=== PATIENT | female | born 1975 | race Caucasian/White ===

== ENCOUNTER 2016-11-08 09:15 | Emergency (ER) | payer OTHER ==
--- NOTE | 2016-11-08 10:22 | ED ORDER SUMMARY ---
..... Patient: NATACHA BEST OrderSheet [facility] VisitID: [id number] [address] [place] [address] 41y, F Registration Date/Time: 11/08/2016 ORDER SHEET Weight: 58.9 kg (stated) Allergies: Penicillins GENERAL ORDERS: MEDICATION ORDERS: Hydrocodone-APAP PO 2 tabs (NOW, HIGH ALERT MEDICATION) (10:18 11/08/2016 Michael WILKINSON) (10:34 Johnathan Adnersen) IV FLUIDS: ORDER SHEET NOTES: [Electronically signed by Jose M Clarke R.N. (10:36 11/08/2016)] [Electronically signed by Ovidio Corbin MD (10:37 11/08/2016)] [Electronically locked/signed by Jose M Clarke R.N. (10:36 11/08/2016)]
--- NOTE | 2016-11-08 10:22 | ED CLINICAL REPORT ---
Clinical Report - Physicians/Mid Levels [facility] [address] [place] [address] 11/08/2016 9:15 Patient: NATACHA BEST Time Seen: 09:22. Arrived- By private vehicle. Historian- patient. HISTORY OF PRESENT ILLNESS Chief Complaint: BACK PAIN. Onset was today The pain began shortly after doing some heavy bending and lifting. It did not occur during the bending and lifting. It was much worse with breathing and movement. It was abrupt in onset. Modifying factors. (Worse with bending and breathing). It is described as being moderate in degree (To severe) and in the area of the upper lumbar spine and lower lumbar spine and radiating (to R and L epigastrium abdomen). The quality is noted to be sharp and "pain". Quality not similar to prior episodes. No bladder dysfunction, bowel dysfunction, sensory loss or motor loss. Patient denies an injury. No other injury. Similar symptoms previously: None. Recent medical care: The patient was seen recently in the office. REVIEW OF SYSTEMS No fever, chills, sore throat, cough or chest pain. No nausea, vomiting, difficulty with urination or urinary frequency. She has had difficulty breathing (because of pain, now resolved). She has had abdominal pain (unchanged for the last 10 days). PAST HISTORY PCP: Sundar Ops: Hosp: Illness: Remote hx of panic attack, Hypothyroidism. SOCIAL HISTORY Current every day smoker. ADDITIONAL NOTES The nursing notes have been reviewed. PHYSICAL EXAM Vital Signs: 11/08/2016 09:28 BP: 118/84. HR: 72. RR: 16. O2 saturation: 100%. Temp: 97.7 F. Pain level now: 7/10. Neck: Neck nontender. CVS: Normal heart rate and rhythm. Heart sounds normal. Respiratory: No respiratory distress. Breath sounds normal. Chest nontender. Abdomen: Mild tenderness in the upper abdomen. Femoral pulses equal. No rebound tenderness or guarding. Back: Mild soft tissue tenderness in the right upper and left upper thoracic area. No soft tissue tenderness in the central thoracic area. Skin: Skin warm. Normal skin color. No rash. Neuro: No motor deficit. No sensory deficit. Straight leg raising: negative on the right and negative on the left. Reflex exam: right biceps 1+, left biceps 1+, right patellar 2+, left patellar 2+, right Achilles 1+ and left Achilles 1+. PROGRESS AND PROCEDURES Course of Care: 09:59 11/08/16. Well's score = 0 plus gestalt, clinical risk of PE is extremely low. 10:19 11/08/16. US at bedside by me - shows normal abdominal aorta. This episode initially was almost certainly musculoskeletal back pain. Since the patient has had some pain with radiation to the epigastrium, I considered abdominal aortic aneurysm which I ruled out with a bedside ultrasound performed by me. There is no evidence of a neurosurgical emergency either. The patient was warned not to drive drink alcohol or work dangerous tools while taking these medications. She was also warned not to take the Xanax and the Robaxin simultaneously. Wells clinical prediction rule (PE): No clinical symptoms of DVT, other diagnosis less likely than PE, immobilization or surgery within 4wks, previous DVT or PE or hemoptysis. No malignancy. Heart rate less than 100 per minute. Disposition: Discharged. CLINICAL IMPRESSION Muscle strain of the upper back. INSTRUCTIONS ([facility] ULTRASOUND SHOWED NORMAL AORTA). Warnings: CONTROLLED SUBSTANCE WARNINGS. Prescription Medications: Hydrocodone/APAP 5mg / 325mg: take 1-2 orally every 4 hours as needed for pain. Dispense twenty (20). No refill. Robaxin 750 mg: Take 2 orally every 6 hours as needed for muscle spasm. Dispense thirty (30). No refills. Substitution is permissible. Follow-up: Follow up with doctor MONTEIRO in five days. Understanding of the discharge instructions verbalized by patient. (Electronically signed by Ovidio Corbin MD 11/08/2016 10:37)
--- NOTE | 2016-11-08 10:22 | ED CLINICAL REPORT ---
Clinical Report - Physicians/Mid Levels [facility] [address] [place] [address] 11/08/2016 9:15 Patient: NATACHA BEST Time Seen: 09:22. Arrived- By private vehicle. Historian- patient. HISTORY OF PRESENT ILLNESS Chief Complaint: BACK PAIN. Onset was today The pain began shortly after doing some heavy bending and lifting. It did not occur during the bending and lifting. It was much worse with breathing and movement. It was abrupt in onset. Modifying factors. (Worse with bending and breathing). It is described as being moderate in degree (To severe) and in the area of the upper lumbar spine and lower lumbar spine and radiating (to R and L epigastrium abdomen). The quality is noted to be sharp and "pain". Quality not similar to prior episodes. No bladder dysfunction, bowel dysfunction, sensory loss or motor loss. Patient denies an injury. No other injury. Similar symptoms previously: None. Recent medical care: The patient was seen recently in the office. REVIEW OF SYSTEMS No fever, chills, sore throat, cough or chest pain. No nausea, vomiting, difficulty with urination or urinary frequency. She has had difficulty breathing (because of pain, now resolved). She has had abdominal pain (unchanged for the last 10 days). PAST HISTORY PCP: Sundar Ops: Hosp: Illness: Remote hx of panic attack, Hypothyroidism. SOCIAL HISTORY Current every day smoker. ADDITIONAL NOTES The nursing notes have been reviewed. PHYSICAL EXAM Vital Signs: 11/08/2016 09:28 BP: 118/84. HR: 72. RR: 16. O2 saturation: 100%. Temp: 97.7 F. Pain level now: 7/10. Neck: Neck nontender. CVS: Normal heart rate and rhythm. Heart sounds normal. Respiratory: No respiratory distress. Breath sounds normal. Chest nontender. Abdomen: Mild tenderness in the upper abdomen. Femoral pulses equal. No rebound tenderness or guarding. Back: Mild soft tissue tenderness in the right upper and left upper thoracic area. No soft tissue tenderness in the central thoracic area. Skin: Skin warm. Normal skin color. No rash. Neuro: No motor deficit. No sensory deficit. Straight leg raising: negative on the right and negative on the left. Reflex exam: right biceps 1+, left biceps 1+, right patellar 2+, left patellar 2+, right Achilles 1+ and left Achilles 1+. PROGRESS AND PROCEDURES Course of Care: 09:59 11/08/16. Well's score = 0 plus gestalt, clinical risk of PE is extremely low. 10:19 11/08/16. US at bedside by me - shows normal abdominal aorta. This episode initially was almost certainly musculoskeletal back pain. Since the patient has had some pain with radiation to the epigastrium, I considered abdominal aortic aneurysm which I ruled out with a bedside ultrasound performed by me. There is no evidence of a neurosurgical emergency either. The patient was warned not to drive drink alcohol or work dangerous tools while taking these medications. She was also warned not to take the Xanax and the Robaxin simultaneously. Wells clinical prediction rule (PE): No clinical symptoms of DVT, other diagnosis less likely than PE, immobilization or surgery within 4wks, previous DVT or PE or hemoptysis. No malignancy. Heart rate less than 100 per minute. Disposition: Discharged. CLINICAL IMPRESSION Muscle strain of the upper back. INSTRUCTIONS ([facility] ULTRASOUND SHOWED NORMAL AORTA). Warnings: CONTROLLED SUBSTANCE WARNINGS. Prescription Medications: Hydrocodone/APAP 5mg / 325mg: take 1-2 orally every 4 hours as needed for pain. Dispense twenty (20). No refill. Robaxin 750 mg: Take 2 orally every 6 hours as needed for muscle spasm. Dispense thirty (30). No refills. Substitution is permissible. Follow-up: Follow up with doctor MONTEIRO in five days. Understanding of the discharge instructions verbalized by patient. (Electronically signed by Ovidio Corbin MD 11/08/2016 10:37)
--- NOTE | 2016-11-08 10:22 | ED NURSING NOTES ---
Clinical Report - Nurses [facility] [address] [place] [address] 11/08/2016 9:15 Patient: NATACHA BEST TRIAGE Triage time 09:28. Acuity: LEVEL 4. Chief Complaint: (Sudden onset lower thoracic back pain that radiates bilaterally. Pain increases with deep breathing. Denies injury.). 09:45 11/08/16. SEPSIS SCREEN: Sepsis Screen. Negative (no infection suspected/documented). STALIN COMA SCORE: Stalin Coma Scale: 15- eyes open spontaneously (4); best verbal response- oriented x 4 (5); best motor response- obeys commands (6). --09:45 Jose M Clarke R.N. 09:28 11/08/16. BP: 118/84. HR: 72. RR: 16. O2 saturation: 100% on room air. Temp: 97.7 F (oral). Pain level now: 02/16. --09:45 Jose M Clarke R.N. Weight: 58.9 kg stated. Height/Length: 69 inches Per Patient. BMI: 19.2. --09:40 Jose M Clarke R.N. Medications Levothyroxine Sodium Oral. --09:30 Jose M lCarke R.N. Xanax Oral 0.25 mg, as needed. --09:31 Jose M Clarke R.N. Zantac Oral (Tablet 150 mg) 1 tablet, 2x a day. --09:42 Jose M Clarke R.N. The following entry was struck and corrected by Jose M Clarke R.N., 09:47 (11/08/16) Reason for correction - other(correction). <<STRICKEN ENTRY-- Zantac Oral. --09:42 Jose M Clarke R.N. --END STRIKE>> The following entry was struck and corrected by Jose M Clarke R.N., 09:47 (11/08/16) Reason for correction - other(correction). <<STRICKEN ENTRY-- Xanax Oral. --09:31 Jose M Clarke R.N. --END STRIKE>>. Allergies Penicillins. --09:30 Jose M Clarke R.N. History Arrived by private vehicle. Historian: patient. Accompanied by family. This started just prior to arrival. 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 PAST MEDICAL HX: Last normal menstrual period- weeks ago. SOCIAL HX: Light tobacco smoker (cigarette)- less than 1/2 a pack per day. Occasional alcohol use. No drug use. ABUSE ASSESSMENT: No report of abuse. --09:45 Jose M Clarke R.N. PROBLEMS: Anxiety Reaction. Thyroid Disease. Sinusitis. Bronchitis. --09:31 Jose M Clarke R.N. ADDITIONAL SURGERIES: no known surgeries. Interventions ID band on patient. To treatment room. --09:45 Jose M Clarke R.N. PHYSICAL ASSESSMENT 09:49 11/08/16. Ambulatory to room. GENERAL / NEURO / PSYCH: Alert. Oriented X 4. Appears in pain and anxious. HEENT: Pupils equal, round and reactive to light. No facial asymmetry noted. Mucous membranes are pink. RESPIRATORY: Mild respiratory distress. The patient can speak in full sentences. Chest nontender. Breath sounds within normal limits. ( posterior and lateral rib pain with deep breathing). CVS: Capillary refill less than 2 seconds. Pulses within normal limits. GI / : Abdomen soft and nontender and normal bowel sounds. SKIN: Skin intact. Skin is warm and dry. Normal skin turgor. --09:49 Jose M Clarke R.N. NURSING PROGRESS NOTES 09:49 11/08/16. Patient gowned. Reassurance given. Two patient identifiers checked. Call light placed in reach. Bed placed in lowest position. Brakes of bed on. Patient ready for evaluation- chart flagged. --09:49 Jose M Clarke R.N. 10:25 11/08/2016 Hydrocodone-APAP (Hydrocodone-Acetaminophen) PO 5/325 mg Tablets 2 tab given. Allergies verified, confirmed 5 rights and sedative warning given to the patient and patient's family. --10:34 Jose M Clarke R.N. 10:34 11/08/2016 Hydrocodone-APAP PO Response: no adverse reaction. --10:34 Jose M Clarke R.N. DISPOSITION / DISCHARGE 10:30. Departure time: 1030. Condition at departure: unchanged and stable. No learning barriers present. Discharge instructions provided and reviewed with the patient and spouse. Reviewed warnings. Reviewed medication(s). Patient verbalized understanding. Written instructions provided in Malawian. The patient was discharged by the physician. She was discharged home and accompanied by spouse. She left the Emergency Department ambulatory and via private vehicle. Spouse driving. --10:36 Jose M Clarke R.N. Locked/Released at 11/08/2016 10:36 by Jose M Clarke R.N.
--- NOTE | 2016-11-08 10:22 | ED NURSING NOTES ---
Clinical Report - Nurses [facility] [address] [place] [address] 11/08/2016 9:15 Patient: NATACHA BEST TRIAGE Triage time 09:28. Acuity: LEVEL 4. Chief Complaint: (Sudden onset lower thoracic back pain that radiates bilaterally. Pain increases with deep breathing. Denies injury.). 09:45 11/08/16. SEPSIS SCREEN: Sepsis Screen. Negative (no infection suspected/documented). STALIN COMA SCORE: Stalin Coma Scale: 15- eyes open spontaneously (4); best verbal response- oriented x 4 (5); best motor response- obeys commands (6). --09:45 Jose M Clarke R.N. 09:28 11/08/16. BP: 118/84. HR: 72. RR: 16. O2 saturation: 100% on room air. Temp: 97.7 F (oral). Pain level now: 02/16. --09:45 Jose M Clarke R.N. Weight: 58.9 kg stated. Height/Length: 69 inches Per Patient. BMI: 19.2. --09:40 Jose M Clarke R.N. Medications Levothyroxine Sodium Oral. --09:30 Jose M Clarke R.N. Xanax Oral 0.25 mg, as needed. --09:31 Jose M Clarke R.N. Zantac Oral (Tablet 150 mg) 1 tablet, 2x a day. --09:42 Jose M Clarke R.N. The following entry was struck and corrected by Jose M Clarke R.N., 09:47 (11/08/16) Reason for correction - other(correction). <<STRICKEN ENTRY-- Zantac Oral. --09:42 Jose M Clarke R.N. --END STRIKE>> The following entry was struck and corrected by Jose M Clarke R.N., 09:47 (11/08/16) Reason for correction - other(correction). <<STRICKEN ENTRY-- Xanax Oral. --09:31 Jose M Clarke R.N. --END STRIKE>>. Allergies Penicillins. --09:30 Jose M Clarke R.N. History Arrived by private vehicle. Historian: patient. Accompanied by family. This started just prior to arrival. 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 PAST MEDICAL HX: Last normal menstrual period- weeks ago. SOCIAL HX: Light tobacco smoker (cigarette)- less than 1/2 a pack per day. Occasional alcohol use. No drug use. ABUSE ASSESSMENT: No report of abuse. --09:45 Jose M Clarke R.N. PROBLEMS: Anxiety Reaction. Thyroid Disease. Sinusitis. Bronchitis. --09:31 Jose M Clarke R.N. ADDITIONAL SURGERIES: no known surgeries. Interventions ID band on patient. To treatment room. --09:45 Jose M Clarke R.N. PHYSICAL ASSESSMENT 09:49 11/08/16. Ambulatory to room. GENERAL / NEURO / PSYCH: Alert. Oriented X 4. Appears in pain and anxious. HEENT: Pupils equal, round and reactive to light. No facial asymmetry noted. Mucous membranes are pink. RESPIRATORY: Mild respiratory distress. The patient can speak in full sentences. Chest nontender. Breath sounds within normal limits. ( posterior and lateral rib pain with deep breathing). CVS: Capillary refill less than 2 seconds. Pulses within normal limits. GI / : Abdomen soft and nontender and normal bowel sounds. SKIN: Skin intact. Skin is warm and dry. Normal skin turgor. --09:49 Jose M Clarke R.N. NURSING PROGRESS NOTES 09:49 11/08/16. Patient gowned. Reassurance given. Two patient identifiers checked. Call light placed in reach. Bed placed in lowest position. Brakes of bed on. Patient ready for evaluation- chart flagged. --09:49 Jose M Clarke R.N. 10:25 11/08/2016 Hydrocodone-APAP (Hydrocodone-Acetaminophen) PO 5/325 mg Tablets 2 tab given. Allergies verified, confirmed 5 rights and sedative warning given to the patient and patient's family. --10:34 Jose M Clarke R.N. 10:34 11/08/2016 Hydrocodone-APAP PO Response: no adverse reaction. --10:34 Jose M Clarke R.N. DISPOSITION / DISCHARGE 10:30. Departure time: 1030. Condition at departure: unchanged and stable. No learning barriers present. Discharge instructions provided and reviewed with the patient and spouse. Reviewed warnings. Reviewed medication(s). Patient verbalized understanding. Written instructions provided in Bhutanese. The patient was discharged by the physician. She was discharged home and accompanied by spouse. She left the Emergency Department ambulatory and via private vehicle. Spouse driving. --10:36 Jose M Clarke R.N. Locked/Released at 11/08/2016 10:36 by Jose M Clarke R.N.
--- NOTE | 2016-11-08 10:22 | ED ORDER SUMMARY ---
..... Patient: NATACHA BEST OrderSheet [facility] VisitID: [id number] [address] [place] [address] 41y, F Registration Date/Time: 11/08/2016 ORDER SHEET Weight: 58.9 kg (stated) Allergies: Penicillins GENERAL ORDERS: MEDICATION ORDERS: Hydrocodone-APAP PO 2 tabs (NOW, HIGH ALERT MEDICATION) (10:18 11/08/2016 Michael WILKINSON) (10:34 Johnathan Andersen) IV FLUIDS: ORDER SHEET NOTES: [Electronically signed by Jose M Clarke R.N. (10:36 11/08/2016)] [Electronically signed by Ovidio Corbin MD (10:37 11/08/2016)] [Electronically locked/signed by Jose M Clarke R.N. (10:36 11/08/2016)]
--- NOTE | 2016-11-08 10:38 | ED MED RECONCILIATION SUMMARY ---
Patient: NATACHA BEST Medication Reconciliation Report [facility] VisitID: [id number] [address] [place] [address] 41y, F Registration Date/Time: 11/08/2016 Weight: 58.9 kg Height/Length: 69 in. BMI: 19.2 ALLERGIES: Penicillins The patient's Home Medications are listed below: THE FOLLOWING MEDICATIONS NEED TO BE RECONCILED: Levothyroxine Sodium Oral Xanax Oral 0.25 mg Zantac Oral (150 mg) 1 tablet, 2x a day The source(s) of the original Home Medication information: Not obtained. The following Medications were given to the patient in the Emergency Department: Hydrocodone-APAP [PO] PO 2 tab, administered: 11/08/2016 10:25:00 AM The following Medications were prescribed to the patient: Hydrocodone/APAP 5mg / 325mg: take 1-2 orally every 4 hours as needed for pain. Dispense twenty (20). No refill. -- Ovidio Corbin MD Robaxin 750 mg: Take 2 orally every 6 hours as needed for muscle spasm. Dispense thirty (30). No refills. Substitution is permissible. -- Ovidio Corbin MD
--- NOTE | 2016-11-08 10:38 | ED MED RECONCILIATION SUMMARY ---
Patient: NATACHA EBST Medication Reconciliation Report [facility] VisitID: [id number] [address] [place] [address] 41y, F Registration Date/Time: 11/08/2016 Weight: 58.9 kg Height/Length: 69 in. BMI: 19.2 ALLERGIES: Penicillins The patient's Home Medications are listed below: THE FOLLOWING MEDICATIONS NEED TO BE RECONCILED: Levothyroxine Sodium Oral Xanax Oral 0.25 mg Zantac Oral (150 mg) 1 tablet, 2x a day The source(s) of the original Home Medication information: Not obtained. The following Medications were given to the patient in the Emergency Department: Hydrocodone-APAP [PO] PO 2 tab, administered: 11/08/2016 10:25:00 AM The following Medications were prescribed to the patient: Hydrocodone/APAP 5mg / 325mg: take 1-2 orally every 4 hours as needed for pain. Dispense twenty (20). No refill. -- Ovidio Corbin MD Robaxin 750 mg: Take 2 orally every 6 hours as needed for muscle spasm. Dispense thirty (30). No refills. Substitution is permissible. -- Ovidio Corbin MD
--- NOTE | 2016-11-08 10:38 | ED MAR SUMMARY ---
..... Medication Administration Record [facility] [address] [place] [address] Patient: NATACHA BEST Visit ID: [id number] 41y, F Weight: 58.9 kg Height/Length: 69 in BMI: 19.2 ALLERGIES: Penicillins Given 10:25 11/08/2016 Jose M Clarke R.N. Medication Administered: HYDROCODONE-APAP [PO] (HYDROCODONE-ACETAMINOPHEN), Dose: 2 tab 5/325 mg Tablets PO. Medication Ordered: Hydrocodone-APAP PO 2 tabs (NOW, HIGH ALERT MEDICATION).
--- NOTE | 2016-11-08 10:38 | ED DISCHARGE INSTRUCTIONS ---
Patient: NATACHA BEST General Instructions [facility] VisitID: [id number] [address] [place] [address] 41y, F Registration Date/Time: 11/08/2016 Muscle strain of the upper back. INSTRUCTIONS (ICE MEDS ULTRASOUND SHOWED NORMAL AORTA). Warnings: CONTROLLED SUBSTANCE WARNINGS. Prescription Medications: Hydrocodone/APAP 5mg / 325mg: take 1-2 orally every 4 hours as needed for pain. Dispense twenty (20). No refill. Robaxin 750 mg: Take 2 orally every 6 hours as needed for muscle spasm. Dispense thirty (30). No refills. Substitution is permissible. Follow-up: Follow up with doctor MONTEIRO in five days. Understanding of the discharge instructions verbalized by patient. ADDITIONAL INFORMATION Back Pain [Acute Or Chronic] Back pain is usually caused by an injury to the muscles or ligaments of the spine. Sometimes the disks that separate each bone in the spine may bulge and cause pain by pressing on a nearby nerve. Back pain may also appear after a sudden twisting/bending force (such as in a car accident), after a simple awkward movement, or lifting something heavy with poor body positioning. In either case, muscle spasm is often present and adds to the pain. Acute back pain usually gets better in one to two weeks. Back pain related to disk disease, arthritis in the spinal joints or spinal stenosis (narrowing of the spinal canal) can become chronic and last for months or years. Unless you had a physical injury (for example, a car accident or fall) X-rays are usually not ordered for the initial evaluation of back pain. If pain continues and does not respond to medical treatment, x-rays and other tests may be performed at a later time. Home Care: You may need to stay in bed the first few days. But, as soon as possible, begin sitting or walking to avoid problems with prolonged bed rest (muscle weakness, worsening back stiffness and pain, blood clots in the legs). When in bed, try to find a position of comfort. A firm mattress is best. Try lying flat on your back with pillows under your knees. You can also try lying on your side with your knees bent up towards your chest and a pillow between your knees. Avoid prolonged sitting. This puts more stress on the lower back than standing or walking. During the first two days after injury, apply an ICE PACK to the painful area for 20 minutes every 2-4 hours. This will reduce swelling and pain. HEAT (hot shower, hot bath or heating pad) works well for muscle spasm. You can start with ice, then switch to heat after two days. Some patients feel best alternating ice and heat treatments. Use the one method that feels the best to you. You may use acetaminophen (Tylenol) or ibuprofen (Motrin, Advil) to control pain, unless another pain medicine was prescribed. [NOTE: If you have chronic liver or kidney disease or ever had a stomach ulcer or GI bleeding, talk with your doctor before using these medicines.] Be aware of safe lifting methods and do not lift anything over 15 pounds until all the pain is gone. Follow Up with your doctor or this facility if your symptoms do not start to improve after one week. Physical therapy may be needed. [NOTE: If X-rays were taken, they will be reviewed by a radiologist. You will be notified of any new findings that may affect your care.] Get Prompt Medical Attention if any of the following occur: Pain becomes worse or spreads to your legs Weakness or numbness in one or both legs Loss of bowel or bladder control Numbness in the groin or genital area Hydrocodone Bitartrate, Acetaminophen Oral tablet What is this medicine? ACETAMINOPHEN; HYDROCODONE (a set a LAQUITA rajni fen; jacquelyn droe KOE done) is a pain reliever. It is used to treat mild to moderate pain. How should I use this medicine? Take this medicine by mouth. Swallow it with a full glass of water. Follow the directions on the prescription label. If the medicine upsets your stomach, take the medicine with food or milk. Do not take more than you are told to take. Talk to your assorter regarding the use of this medicine in children. This medicine is not approved for use in children. What side effects may I notice from receiving this medicine? Side effects that you should report to your doctor or health certified social workers in health care as soon as possible: allergic reactions like skin rash, itching or hives, swelling of the face, lips, or tongue breathing problems confusion feeling faint or lightheaded, falls stomach pain yellowing of the eyes or skin Side effects that usually do not require medical attention (report to your doctor or health certified social workers in health care if they continue or are bothersome): nausea, vomiting stomach upset What may interact with this medicine? alcohol antihistamines isoniazid medicines for depression, anxiety, or psychotic disturbances medicines for sleep muscle relaxants naltrexone narcotic medicines (opiates) for pain phenobarbital ritonavir tramadol What if I miss a dose? If you miss a dose, take it as soon as you can. If it is almost time for your next dose, take only that dose. Do not take double or extra doses. Where should I keep my medicine? Keep out of the reach of children. This medicine can be abused. Keep your medicine in a safe place to protect it from theft. Do not share this medicine with anyone. Selling or giving away this medicine is dangerous and against the law. Store at room temperature between 15 and 30 degrees C (59 and 86 degrees F). Protect from light. Keep container tightly closed. Throw away any unused medicine after the expiration date. Discard unused medicine and used packaging carefully. Pets and children can be harmed if they find used or lost packages. What should I tell my health care provider before I take this medicine? They need to know if you have any of these conditions: brain tumor Crohn's disease, inflammatory bowel disease, or ulcerative colitis drink more than 3 alcohol-containing drinks per day drug abuse or addiction head injury heart or circulation problems kidney disease or problems going to the bathroom liver disease lung disease, asthma, or breathing problems an unusual or allergic reaction to acetaminophen, hydrocodone, other opioid analgesics, other medicines, foods, dyes, or preservatives or trying to get breast-feeding What should I watch for while using this medicine? Tell your doctor or health certified social workers in health care if your pain does not go away, if it gets worse, or if you have new or a different type of pain. You may develop tolerance to the medicine. Tolerance means that you will need a higher dose of the medicine for pain relief. Tolerance is normal and is expected if you take the medicine for a long time. Do not suddenly stop taking your medicine because you may develop a severe reaction. Your body becomes used to the medicine. This does NOT mean you are addicted. Addiction is a behavior related to getting and using a drug for a non-medical reason. If you have pain, you have a medical reason to take pain medicine. Your doctor will tell you how much medicine to take. If your doctor wants you to stop the medicine, the dose will be slowly lowered over time to avoid any side effects. You may get drowsy or dizzy when you first start taking the medicine or change doses. Do not drive, use machinery, or do anything that may be dangerous until you know how the medicine affects you. Stand or sit up slowly. There are different types of narcotic medicines (opiates) for pain. If you take more than one type at the same time, you may have more side effects. Give your health care provider a list of all medicines you use. Your doctor will tell you how much medicine to take. Do not take more medicine than directed. Call emergency for help if you have problems breathing. The medicine will cause constipation. Try to have a bowel movement at least every 2 to 3 days. If you do not have a bowel movement for 3 days, call your doctor or health certified social workers in health care. Too much acetaminophen can be very dangerous. Do not take Tylenol (acetaminophen) or medicines that contain acetaminophen with this medicine. Many non-prescription medicines contain acetaminophen. Always read the labels carefully. You have been given the following additional information: Back Pain (Acute Or Chronic) Hydrocodone Bitartrate, Acetaminophen Oral tablet (Electronically signed by Ovidio Corbin MD 11/08/2016 10:37)
--- NOTE | 2016-11-08 10:38 | ED MAR SUMMARY ---
..... Medication Administration Record [facility] [address] [place] [address] Patient: NATACHA BEST Visit ID: [id number] 41y, F Weight: 58.9 kg Height/Length: 69 in BMI: 19.2 ALLERGIES: Penicillins Given 10:25 11/08/2016 Jose M Clarke R.N. Medication Administered: HYDROCODONE-APAP [PO] (HYDROCODONE-ACETAMINOPHEN), Dose: 2 tab 5/325 mg Tablets PO. Medication Ordered: Hydrocodone-APAP PO 2 tabs (NOW, HIGH ALERT MEDICATION).
== END 2016-11-08 10:30 | disposition home or self-care (01) ==
LOC: ED SRH 09:15
DX: S29.012A Strain of muscle and tendon of back wall of thorax, initial encounter (principal); X50.0XXA Overexertion from strenuous movement or load, initial encounter; Y93.89 Activity, other specified; Y92.9 Unspecified place or not applicable; Y99.9 Unspecified external cause status